=== PATIENT | female | born 1995 | race Caucasian/White ===

== ENCOUNTER 2022-05-13 17:50 | Outpatient (CLI) | payer BC, SELFPAY | END 2022-05-13 17:51 | disposition home or self-care (01) | LOC: NFLDREF 17:51 | PROVIDERS: Visit Provider Physician Assistant | DX: N93.8 Other specified abnormal uterine and vaginal bleeding (principal) | CPT/HCPCS: 84443 ==

== ENCOUNTER 2022-06-02 10:58 | Outpatient (CLI) | payer BC, SELFPAY ==
--- NOTE | 2022-06-02 11:00 | CRLHL7_ITS ---
For Patients: As a result of the Century Cures Act, medical imaging exams and procedure reports are released immediately into your electronic medical record. You may view this report before your referring provider. If you have questions, please contact your health care provider. INDICATION: Dysfunctional Uterine Bleeding COMPARISON: none TECHNIQUE: 2D rosado scale and color Doppler images were acquired of the pelvis using a transabdominal and transvaginal approach. FINDINGS: Sonographic images demonstrate a normal size and smooth outer contour of the uterus. Uterus measures 6.2 cm in length by 3.3 cm in AP diameter by 5.4 cm in transverse dimension. The myometrium has a normal uniform echotexture. The endometrial lining appears thickened and heterogeneous and measures 14 mm in composite thickness. Possible polyp is present measuring 1.6 x 0.7 x 1.1 cm. The right ovary measures 3.4 x 2.6 x 2.2 cm in size and the left ovary measures 4.2 x 1.8 x 2.6 cm. The ovaries demonstrate normal arterial and venous blood flow on color Doppler analysis. There are no suspicious fluid collections within the cul-de-sac. IMPRESSION: Thickened and heterogeneous endometrium measuring 14 millimeters. Possible endometrial polyp measuring 16 millimeters. Dictated by Matt Medley MD @ 06/02/2022 12:29:09 PM (Electronically Signed)
== END 2022-06-02 10:59 | disposition home or self-care (01) ==
LOC: US 11:01
PROVIDERS: Visit Provider Physician Assistant
DX: N93.8 Other specified abnormal uterine and vaginal bleeding (principal); R93.89 Abnormal findings on diagnostic imaging of other specified body structures
CPT/HCPCS: 76830; 76856

== ENCOUNTER 2022-06-10 12:37 | Outpatient (CLI) | payer BC, SELFPAY ==
[2022-06-10 19:45] LABS: Albumin* 4.6 g/dL (3.3-5.0); Chloride* 106 mmol/L (96-114)
[2022-06-10 19:46] LABS: Potassium* 4.6 mmol/L (3.6-5.1); Sodium* 141 mmol/L (135-149)
[2022-06-10 19:48] LABS: Bilirubin Total* 0.6 mg/dL (0.1-1.5); Creatinine* 0.6 mg/dL (0.5-1.5); Estimated Glomerular Filt Rate 127 ml/min
[2022-06-10 19:49] LABS: Alanine Aminotransferase* 66 U/L (4-35); Alkaline Phosphatase* 65 U/L (40-150); Aspartate Amino Transferase* 37 U/L (12-35); Blood Urea Nitrogen* 7 mg/dL (5-24); Calcium* 9.8 mg/dL (8.4-10.6); Carbon Dioxide* 23 mmol/L (20-32); Glucose* 90 mg/dL (60-115); Total Protein* 7.5 g/dL (6.0-8.3)
== END 2022-06-10 12:38 | disposition home or self-care (01) ==
PROVIDERS: Visit Provider Physician Assistant
DX: R03.0 Elevated blood-pressure reading, without diagnosis of hypertension (principal); R79.89 Other specified abnormal findings of blood chemistry
CPT/HCPCS: 80053

== ENCOUNTER 2022-06-12 07:16 | Day surgery (SDC) | payer BC, SELFPAY ==
[2022-06-12 07:31] VITALS: BMI 39.4
[2022-06-12 07:45] VITALS: BP 154/93; PULSE 106; RESP 20; TEMP 36.8; O2SAT 97
[2022-06-12] MEDS: LACTATED RINGERS 1000 ML 1,000 ML 100 ML IV (07:50)
[2022-06-12] MEDS: SODIUM CHLORIDE 0.9 % (FLUSH) 10 ML SYRINGE IVF (07:50)
[2022-06-12 08:03] LABS: HCG Qualitative* Negative (Negative)
--- NOTE | 2022-06-12 09:29 | W.ANESCHARGE ---
Anesthesia Charges Start Date/Time Anesthesia Start Date: 06/12/22 Anesthesia Start Time: 09:02 Stop Date/Time Anesthesia Stop Date: 06/12/22 Anesthesia Stop Time: 10:12
[2022-06-12] MEDS: LIDOCAINE 1% MDV 20 ML INJECTION (09:40)
[2022-06-12] MEDS: LACTATED RINGERS 1000 ML 1,000 ML 125 ML IV (09:50)
[2022-06-12 10:15] VITALS: BP 143/91; PULSE 101; RESP 20; TEMP 36.3; O2SAT 97
[2022-06-12 10:30] VITALS: BP 149/100; PULSE 93; RESP 20; O2SAT 99
--- NOTE | 2022-06-12 10:52 | SUR.PHASEII ---
spoke to anesthesia about evelated bp. no treatment ordered. pt is aware of her elevated bp and has an appt to be seen
[2022-06-12 11:00] VITALS: BP 164/101; PULSE 101; RESP 20; TEMP 36.5; O2SAT 99
--- NOTE | 2022-06-12 16:00 | W.PM.GYNPROC ---
Procedure Note Date Seen: 06/12/22 Procedure Details: PREOPERATIVE DIAGNOSIS: Persistent intermenstrual spotting, suspected endometrial polyp POSTOPERATIVE DIAGNOSIS: Persistent intermenstrual spotting Thickened endometrium PROCEDURE: Hysteroscopy, dilation and curettage SURGEON: Henna Madrigal MD ANESTHESIA: Monitored anesthesia care IV FLUIDS: 1200 mL crystalloid URINE OUTPUT: Not measured EBL: 25 mL SALINE DEFICIT: 300 mL FINDINGS: 1. Upon pelvic exam under anesthesia, vagina and cervix were normal in appearance. Uterus was mobile, anteverted, and of normal size and texture. 2. Upon hysteroscopy, the endometrium was diffusely thickened and polypoid, extending down to the upper endocervix. The cervix was patulous and there was escapage of hysteroscopy fluid throughout the procedure, limiting visualization. COMPLICATIONS: None PROCEDURE IN DETAIL: Patient was taken to the operating room with IV running. She was positioned in dorsal lithotomy position with her legs fully supported in Yellofin stirrups. Monitored anesthesia care was administered. She was prepped and draped in the usual sterile fashion. Exam under anesthesia was performed for the above-noted findings. Speculum was inserted. Cervix visualized and grasped along the anterior lip with a single-tooth tenaculum. This was later exchanged for an Allis clamp in an attempt to keep more hysteroscopy fluid within the endometrial cavity. Cervix was serially dilated to accommodate the TRUCLEAR hysteroscope. This was assembled with saline inflow and outflow in place. The line was flushed of bubbles. The hysteroscope was advanced through the cervix into the endometrial cavity for the above noted findings. The tissue morcellator was then inserted through the operating channel. Window lock was performed. Under direct visualization, the endometrial cavity was circumferentially curetted with the tissue morcellator. At the end of the case, the endometrial cavity was circumferentially curetted. Tubal ostia were not well visualized. The hysteroscope and morcellator were then removed from the uterus. Allis clamp was removed from the anterior lip of cervix. Hemostasis was noted. Patient tolerated procedure well. She was taken to recovery area in stable condition.
== END 2022-06-12 11:11 | disposition home or self-care (01) ==
PROVIDERS: Nurse Anesthetist, Certified Registered; Visit Provider Obstetrics & Gynecology
PROC: 0UDB8ZZ Extraction of Endometrium, Via Natural or Artificial Opening Endoscopic (ICD-10-PCS; CPT 58558; principal; 2022-06-12 08:15)
DX: N92.0 Excessive and frequent menstruation with regular cycle (principal); N84.0 Polyp of corpus uteri
CPT/HCPCS: 58558; 00952; 36415; 84703; 86850; 86900; 86901; 88305; J1885; J2250; J2704; J3010; J7120

== ENCOUNTER 2022-06-18 09:31 | Outpatient (CLI) | payer BC, SELFPAY ==
[2022-06-18 22:15] LABS: HIV 1/2/P24 Combo Screen* Negative (Negative)
[2022-06-18 22:25] LABS: Hepatitis C Virus Antibody* Negative (Negative)
[2022-06-21 04:20] LABS: Prolactin 9.7 ng/mL (2.8-29.2)
[2022-06-22 03:38] LABS: Hours Collected Random hr; Normetanephrine Urine CRT 194 ug/g CRT (0-400); Total Volume Random mL
[2022-06-23 08:53] LABS: Renin Activity 1.7 ng/mL/hr
[2022-06-24 08:38] LABS: Sex Hormone Binding Globulin 24 nmol/L (25-122); Testosterone Bioavailable 29.4 ng/dL (2.2-20.6); Testosterone, Free LC-MS/MS 9.7 pg/mL (0.8-7.4); Testosterone, LC-MS/MS 52 ng/dL (9-55)
[2022-06-24 13:28] LABS: 17-Hydroxyprogesterone HPLC 54.11 ng/dL (<=206.00)
== END 2022-06-18 09:32 | disposition home or self-care (01) ==
PROVIDERS: Obstetrics & Gynecology; Visit Provider Physician Assistant Medical
DX: Z01.419 Encounter for gynecological examination (general) (routine) without abnormal findings (principal); I10 Essential (primary) hypertension; R74.8 Abnormal levels of other serum enzymes; E66.9 Obesity, unspecified; R53.83 Other fatigue; N93.8 Other specified abnormal uterine and vaginal bleeding
CPT/HCPCS: 82088; 83498; 83835; 84146; 84244; 84270; 84402; 84403; 84443; 86703; 86803

== ENCOUNTER 2022-06-30 09:35 | Outpatient (CLI) | payer BC, SELFPAY ==
[2022-06-30 17:17] LABS: Cholesterol* 208 mg/dL (90-199)
[2022-06-30 17:18] LABS: HDL Cholesterol* 38 mg/dL (>=50); LDL Cholesterol Calculated 141 mg/dL (<100); Triglycerides* 143 mg/dL (40-149)
== END 2022-06-30 09:36 | disposition home or self-care (01) ==
PROVIDERS: Visit Provider Obstetrics & Gynecology
DX: E28.2 Polycystic ovarian syndrome (principal); R53.83 Other fatigue; R74.8 Abnormal levels of other serum enzymes; R79.89 Other specified abnormal findings of blood chemistry
CPT/HCPCS: 80061

== ENCOUNTER 2022-07-14 19:49 | Outpatient (CLI) | payer BC, SELFPAY ==
--- NOTE | 2022-07-29 12:40 | W.PM.SLEEP ---
Sleep Study Details Details Interpreting Provider: Trung Date of Sleep Study: 07/14/22 Sleep Study Details: STUDY TYPE:? Home ? BMI:? 40.6 ORDERING PROVIDER:? Sadie INDICATION:? Concerns about sleep apnea ? SLEEP SUMMARY:? 389.5 minutes monitored RESPIRATORY SUMMARY:? AHI 12, low oxygen 86, 0.1% of study oxygen less than 90%, snoring 0.1% PERIODIC LIMB MOVEMENTS OF SLEEP:? Not recorded CARDIAC:? Range 66-112, mean 81.9 IMPRESSION:? Mild obstructive sleep apnea RECOMMENDATION: Treatment options would include AutoSet CPAP pressure 4-17, dental appliance, weight loss and/or airway expansion surgery.
== END 2022-07-14 19:50 | disposition home or self-care (01) ==
LOC: SLEEP 19:50
PROVIDERS: PCP Obstetrics & Gynecology; Visit Provider Physician Assistant Medical
DX: G47.33 Obstructive sleep apnea (adult) (pediatric) (principal)
CPT/HCPCS: 95806

== ENCOUNTER 2022-08-06 11:29 | Outpatient (CLI) | payer BC, SELFPAY | END 2022-08-06 11:30 | disposition home or self-care (01) | PROVIDERS: PCP Obstetrics & Gynecology; Visit Provider Physician Assistant Medical | DX: I10 Essential (primary) hypertension (principal); E66.9 Obesity, unspecified | CPT/HCPCS: 83540; 83550; 84443 ==

== ENCOUNTER 2023-12-09 11:02 | Outpatient (CLI) | payer BC, SELFPAY | END 2023-12-09 11:03 | disposition home or self-care (01) | PROVIDERS: PCP Physician Assistant Medical; Visit Provider Physician Assistant Medical | DX: Z01.818 Encounter for other preprocedural examination (principal); I10 Essential (primary) hypertension; R79.89 Other specified abnormal findings of blood chemistry; R53.83 Other fatigue; R74.8 Abnormal levels of other serum enzymes; R73.09 Other abnormal glucose; E61.1 Iron deficiency; F41.9 Anxiety disorder, unspecified | CPT/HCPCS: 80076; 81025; 82607; 83036; 83540; 83550; 84443; 85027 ==

== ENCOUNTER 2024-02-16 11:05 | Outpatient (CLI) | payer BC, SELFPAY ==
--- NOTE | 2024-02-16 11:15 | CRLHL7_ITS ---
For Patients: As a result of the Century Cures Act, medical imaging exams and procedure reports are released immediately into your electronic medical record. You may view this report before your referring provider. If you have questions, please contact your health care provider. INDICATION: Abnormal lab values COMPARISON: none TECHNIQUE: Real time rosado scale imaging and color Doppler analysis was performed of the right upper quadrant. FINDINGS: The patient`s liver measures 18.6 cm and has increased echogenicity. There is a normal appearance of the hepatic IVC and proximal abdominal aorta. There is no evidence of ascites. The gallbladder is of normal size and there is no evidence of intraluminal stones or sludge. The gallbladder wall measures 2.1 mm in thickness. The common bile duct is of normal size and measures 2.9 mm in diameter at the level of the tai hepatis. The pancreas appears normal. There is no evidence of a stone or hydronephrosis within the right kidney. The right kidney measures 11.7 cm in length. Main portal vein measures 9 millimeters with antegrade flow. IMPRESSION: Diffuse hepatic steatosis. No intrahepatic mass or ascites. Normal gallbladder. Dictated by Matt Medley MD @ 02/17/2024 9:45:57 AM (Electronically Signed)
== END 2024-02-16 11:06 | disposition home or self-care (01) ==
LOC: US 11:05
PROVIDERS: PCP Physician Assistant Medical; Visit Provider Physician Assistant Medical
DX: R74.8 Abnormal levels of other serum enzymes (principal); K76.0 Fatty (change of) liver, not elsewhere classified
CPT/HCPCS: 76705

== ENCOUNTER 2024-06-16 10:52 | Outpatient (CLI) | payer BC, SELFPAY | END 2024-06-16 10:53 | disposition home or self-care (01) | LOC: LKVREF 10:52 | PROVIDERS: PCP Physician Assistant Medical; Visit Provider Physician Assistant Medical | DX: K76.0 Fatty (change of) liver, not elsewhere classified (principal); R74.8 Abnormal levels of other serum enzymes | CPT/HCPCS: 80076 ==